=== PATIENT | male | born 1985 ===

== ENCOUNTER 2017-04-20 13:49 | Emergency (ER) | payer SELFPAY ==
[2017-04-20] MEDS ORDERED: Sodium Chloride 0.9% 1,000 ML IV ONE (14:13)
[2017-04-20 14:33] LABS: BASO # 0.1 K/uL (0.0-0.2); BASO % 1.1 % (0.0-2.0); EOS # 0.2 K/uL (0.0-0.7); EOS % 2.5 % (0.0-4.0); HEMATOCRIT 43.5 % (35.0-51.0); LYMPH % 25.5 % (20.0-40.0); MEAN CELL VOLUME 89.3 fL (80.0-94.0); MEAN CORPUSCULAR HEMOGLOBIN 30.4 pg (27.0-31.0); MEAN PLATELET VOLUME 9.1 fL (7.2-11.7); MONO # 0.8 K/uL (0.0-0.8); MONO % 9.9 % (0.0-10.0); RED CELL DISTRIBUTION WIDTH 13.9 % (11.5-14.5); WHITE BLOOD COUNT 7.7 K/uL (4.8-10.8)
[2017-04-20 14:41] LABS: CHLORIDE 99 mmol/L (98-107)
[2017-04-20 14:42] LABS: POTASSIUM 3.9 mmol/L (3.6-5.2); SODIUM 137 mmol/L (132-148)
[2017-04-20 14:44] LABS: ALB/GLOB RATIO 1.2 (1.0-2.1); ALKALINE PHOSPHATASE 71 U/L (38-126); AST/SGOT 19 U/L (17-59); BILIRUBIN,TOTAL 1.2 mg/dL (0.2-1.3); BLOOD UREA NITROGEN 17 mg/dL (9-20); CARBON DIOXIDE 26 mmol/L (22-30); GFR AFRICAN-AMERICAN > 60; GLUCOSE,RANDOM 90 mg/dL (75-110); TOTAL PROTEIN 7.6 g/dL (6.3-8.3)
[2017-04-20 14:45] LABS: ALT/SGPT 35 U/L (21-72); CALCIUM 8.9 mg/dl (8.6-10.4); MAGNESIUM 1.6 mg/dL (1.6-2.3)
[2017-04-20 15:03] LABS: FREE T4 1.07 ng/dL (0.78-2.19)
[2017-04-20 15:17] LABS: THYROID STIMULATING HORMONE 1.89 mIU/L (0.46-4.68)
--- NOTE | 2017-04-20 15:24 | C.PDOC ---
Time Seen by Provider: 04/20/17 14:06 Chief Complaint (Nursing): Palpitations History Per: Patient, Family Onset/Duration Of Symptoms: Days (1), Intermittent Episodes Current Symptoms Are (Timing): Still Present Quality Of Symptoms: Rapid Heart Rate Severity: Moderate Exacerbating Factor(s): Pos: None Additional History Per: Prior Records Past Medical History Reviewed: Historical Data, Nursing Documentation, Vital Signs Vital Signs: Last Vital Signs Temp 98.3 F 04/20/17 13:58 Pulse 62 04/20/17 13:58 Resp 18 04/20/17 13:58 BP 105/63 04/20/17 13:58 Pulse Ox 98 04/20/17 13:58 - Medical History PMH: Gastritis Surgical History: No Surg Hx - [facility] Procedures CLOSURE SKIN & SUBCUTANEOUS NEC (05/30/06) TETANUS TOXOID ADMINIST (05/30/06) Family History: States: Unknown Family Hx - Social History Hx Tobacco Use: No Hx Alcohol Use: No Hx Substance Use: No - Immunization History Hx Tetanus Toxoid Vaccination: No Hx Influenza Vaccination: No Hx Pneumococcal Vaccination: No Review Of Systems Except As Marked, All Systems Reviewed And Found Negative. Constitutional: Negative for: Fever Cardiovascular: Positive for: Palpitations Respiratory: Negative for: Hemoptysis Gastrointestinal: Negative for: Vomiting Musculoskeletal: Negative for: Neck Pain, Leg Pain Skin: Negative for: Rash Neurological: Positive for: Headache. Negative for: Weakness, Numbness, Seizures Physical Exam - Physical Exam Appears: Non-toxic, No Acute Distress Skin: Normal Color, Warm, Dry, No Rash Head: Atraumatic, Normacephalic Eye(s): bilateral: Normal Inspection, PERRL, EOMI Neck: Normal ROM, Supple Cardiovascular: Rhythm Regular Respiratory: Normal Breath Sounds, No Accessory Muscle Use Gastrointestinal/Abdominal: Soft Back: No CVA Tenderness Extremity: Normal ROM, No Pedal Edema, No Calf Tenderness Neurological/Psych: Oriented x3, Normal Motor, Normal Sensation ED Course And Treatment - Laboratory Results Result Diagrams: 04/20/17 14:29 04/20/17 14:29 Lab Interpretation: No Acute Changes ECG: Interpreted By Me, Viewed By Me ECG Rhythm: Sinus Rhythm, Nonspecific Changes ECG Interpretation: No Acute Changes Rate From EC O2 Sat by Pulse Oximetry: 98 Pulse Ox Interpretation: Normal - Radiology CXR: Interpreted by Me, Viewed By Me CXR Interpretation: Yes: No Acute Disease, Heart Size (wnl) Reassessment Condition: Improved Disposition Counseled Patient/Family Regarding: Studies Performed, Diagnosis, Need For Followup, Rx Given - Disposition Referrals: [facility] [Outside] Disposition: HOME/ ROUTINE Disposition Time: 15:25 Condition: STABLE Additional Instructions: Drink plenty of fluids. Follow up in the clinic for further evaluation and treatment. Return to the ER if you pass out, develop worsening of symptoms or if you have any other concerns. Prescriptions: Acetaminophen [Tylenol Extra Strength] 2 tab PO Q6 PRN #30 tablet PRN Reason: Pain, Moderate (4-7) Famotidine [Pepcid] 20 mg PO BID #30 tab Instructions: Palpitations (ED) Forms: [facility] (Nigerian) Print Language: RUSSIAN - Clinical Impression Clinical Impression: Palpitations
[2017-04-20 15:35] VITALS: BP 102/58; RESP 14; TEMP 97.9; O2SAT 100
[2017-04-20 15:39] VITALS: PULSE 64
--- NOTE | 2017-04-20 16:33 | RAD ---
PROCEDURE: CHEST RADIOGRAPH, 1 VIEW HISTORY: Palpitations COMPARISON: None available. FINDINGS: LUNGS: Clear. PLEURA: No pneumothorax or pleural fluid seen. CARDIOVASCULAR: Normal. OSSEOUS STRUCTURES: No significant abnormalities. VISUALIZED UPPER ABDOMEN: Normal. OTHER FINDINGS: None. IMPRESSION: No active disease.
--- NOTE | 2017-04-21 21:40 | CARD ---
APPROVED REPORT EKG Measurement Heart [id number] <Conclusion> Sinus bradycardia Minimal voltage criteria for LVH, may be normal variant Borderline ECG
== END 2017-04-20 16:10 | disposition home or self-care (01) ==
LOC: C.ER 13:49
DX: R00.2 Palpitations (principal)
CPT/HCPCS: 71010; 80053; 83735; 84439; 84443; 84484; 85025; 93005; 96374; 96375; 99285; G0480; J1885; J7040

== ENCOUNTER 2017-07-10 09:16 | Emergency (ER) | payer OTHER ==
[2017-07-10] MEDS ORDERED: Sodium Chloride 0.9% 1,000 ML IV STA (09:39)
[2017-07-10 09:47] LABS: RBC URINE 1 /hpf (0-3); URINE BILIRUBIN NEGATIVE (NEGATIVE); URINE BLOOD NEGATIVE (NEGATIVE); URINE COLOR Yellow (YELLOW); URINE GLUCOSE (UA) NORMAL (Normal); URINE KETONE NEGATIVE (NEGATIVE); URINE LEUKOCYTE ESTERASE NEG Leu/uL (Negative); URINE PROTEIN NEGATIVE (NEGATIVE); URINE UROBILINOGEN NORMAL mg/dL (0.2-1.0)
[2017-07-10] MEDS ORDERED: Sodium Chloride 0.9% 1,000 ML ONE (09:50)
[2017-07-10 09:52] LABS: BASO # 0.1 K/uL (0.0-0.2); BASO % 1.1 % (0.0-2.0); EOS # 0.1 K/uL (0.0-0.7); EOS % 1.8 % (0.0-4.0); HEMATOCRIT 44.1 % (35.0-51.0); LYMPH # 1.8 K/uL (1.0-4.3); LYMPH % 34.5 % (20.0-40.0); MEAN CELL VOLUME 89.1 fL (80.0-94.0); MEAN CORPUSCULAR HEMOGLOBIN 31.1 pg (27.0-31.0); MEAN CORPUSCULAR HGB CONC 34.8 g/dL (33.0-37.0); MEAN PLATELET VOLUME 8.9 fL (7.2-11.7); MONO # 0.5 K/uL (0.0-0.8); MONO % 10.5 % (0.0-10.0); RED CELL DISTRIBUTION WIDTH 13.6 % (11.5-14.5); WHITE BLOOD COUNT 5.2 K/uL (4.8-10.8)
--- NOTE | 2017-07-10 10:05 | C.PDOC ---
History Of Present Illness 31 year old male presents to the ED for evaluation of intermittent epigastric pain along with acid reflux for the past 2 weeks. Patient states sometimes he is nauseous but denies vomit, diarrhea, fever, chills, CO, SOB. Time Seen by Provider: 07/10/17 09:30 Chief Complaint (Nursing): Abdominal Pain History Per: Patient History/Exam Limitations: no limitations Onset/Duration Of Symptoms: Days Current Symptoms Are (Timing): Still Present Location Of Pain/Discomfort: Epigastric Radiation Of Pain To:: None Quality Of Discomfort: "Pain" Associated Symptoms: Nausea Exacerbating Factors: None Alleviating Factors: None Recent travel outside of the [place]: No Additional History Per: Patient Past Medical History Reviewed: Historical Data, Nursing Documentation, Vital Signs Vital Signs: Last Vital Signs Temp 98.3 F 07/10/17 12:23 Pulse 57 L 07/10/17 12:23 Resp 18 07/10/17 12:23 BP 106/65 07/10/17 12:23 Pulse Ox 99 07/10/17 12:23 - Medical History PMH: Gastritis Denies: Chronic Kidney Disease Surgical History: No Surg Hx - [facility] Procedures CLOSURE SKIN & SUBCUTANEOUS NEC (05/30/06) TETANUS TOXOID ADMINIST (05/30/06) Family History: States: Unknown Family Hx - Social History Hx Tobacco Use: No Hx Alcohol Use: No Hx Substance Use: No - Immunization History Hx Tetanus Toxoid Vaccination: No Hx Influenza Vaccination: No Hx Pneumococcal Vaccination: No Review Of Systems Constitutional: Negative for: Fever, Chills Cardiovascular: Negative for: Chest Pain, Palpitations Respiratory: Negative for: Cough, Shortness of Breath Gastrointestinal: Positive for: Nausea, Abdominal Pain. Negative for: Vomiting , Diarrhea Genitourinary: Negative for: Dysuria, Hematuria Skin: Negative for: Rash Neurological: Negative for: Weakness, Numbness Physical Exam - Physical Exam Appears: Non-toxic, No Acute Distress Skin: Normal Color, Warm, Dry Head: Atraumatic, Normacephalic Eye(s): bilateral: Normal Inspection Nose: No Discharge, No Deformity Neck: Normal ROM, Supple Chest: Symmetrical Cardiovascular: Rhythm Regular, No Murmur Respiratory: Normal Breath Sounds, No Rales, No Rhonchi, No Wheezing Gastrointestinal/Abdominal: Soft, Tenderness (mild epigastric and RUQ), No Distention, No Guarding, No Rebound Extremity: Normal ROM, No Pedal Edema, No Calf Tenderness, No Deformity, No Swelling Neurological/Psych: Oriented x3 ED Course And Treatment - Laboratory Results Result Diagrams: 07/10/17 09:47 07/10/17 09:47 O2 Sat by Pulse Oximetry: 100 (On RA) Pulse Ox Interpretation: Normal - CT Scan/US US abdomen Other Rad Studies (CT/US): Read By Radiologist, Radiology Report Reviewed CT/US Interpretation: HISTORY: upper abd pain. COMPARISON: None available. TECHNIQUE: Sonographic evaluation of the right upper quadrant of the abdomen. FINDINGS: LIVER: Measures 13.9 cm in length and appears unremarkable. No focal hepatic mass identified. The main portal vein appears patent with normal directional flow. No intrahepatic bile duct dilatation. GALLBLADDER: No gallstones. No gallbladder wall thickening or pericholecystic edema. Negative sonographic Dee's sign as assessed by the claims coordinator. COMMON BILE DUCT: Measures 3 mm. PANCREAS: Not well-visualized. RIGHT KIDNEY: Measures 10.6 x 3.9 x 4.4 cm. No obstructing calculus or hydronephrosis identified. AORTA: Limited visualization appears grossly unremarkable. IVC: Limited visualization appears grossly unremarkable. OTHER FINDINGS: None . IMPRESSION : Unremarkable right upper quadrant ultrasound. Progress Note: Plan: -Blood work. -IV fluids. -Protonix 40 mg IVP. -Zofran 4 mg IVP. On re-evaluation patient feels better, tolerates po, abdomen is soft and not tender. Patient is stable to be d/c home with clinic follow up. - Abdomen US Disposition - Disposition Referrals: [facility] [Outside] Disposition: HOME/ ROUTINE Disposition Time: 12:07 Condition: STABLE Additional Instructions: Follow up in Clinic within 1-2 days. Return to ED if feel worse. 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 - Scribe Statement The provider has reviewed the documentation as recorded by the Scribe Aurelio Kennedy All medical record entries made by the Scribe were at my direction and personally dictated by me. I have reviewed the chart and agree that the record accurately reflects my personal performance of the history, physical exam, medical decision making, and the department course for this patient. I have also personally directed, reviewed, and agree with the discharge instructions and disposition.
[2017-07-10 10:09] LABS: ALB/GLOB RATIO 1.3 (1.0-2.1); ALKALINE PHOSPHATASE 69 U/L (38-126); ALT/SGPT 84 U/L (21-72); AST/SGOT 70 U/L (17-59); BILIRUBIN,TOTAL 1.6 mg/dL (0.2-1.3); BLOOD UREA NITROGEN 14 mg/dL (9-20); CALCIUM 8.5 mg/dl (8.6-10.4); CARBON DIOXIDE 30 mmol/L (22-30); CHLORIDE 98 mmol/L (98-107); GFR AFRICAN-AMERICAN > 60; GLUCOSE,RANDOM 95 mg/dL (75-110); POTASSIUM 4.6 mmol/L (3.6-5.2); SODIUM 135 mmol/L (132-148); TOTAL PROTEIN 7.5 g/dL (6.3-8.3)
--- NOTE | 2017-07-10 11:07 | US ---
HISTORY: upper abd pain COMPARISON: None available. TECHNIQUE: Sonographic evaluation of the right upper quadrant of the abdomen. FINDINGS: LIVER: Measures 13.9 cm in length and appears unremarkable. No focal hepatic mass identified. The main portal vein appears patent with normal directional flow. No intrahepatic bile duct dilatation. GALLBLADDER: No gallstones. No gallbladder wall thickening or pericholecystic edema. Negative sonographic Dee's sign as assessed by the electric organ checker. COMMON BILE DUCT: Measures 3 mm. PANCREAS: Not well-visualized. RIGHT KIDNEY: Measures 10.6 x 3.9 x 4.4 cm. No obstructing calculus or hydronephrosis identified. AORTA: Limited visualization appears grossly unremarkable. IVC: Limited visualization appears grossly unremarkable. OTHER FINDINGS: None . IMPRESSION: Unremarkable right upper quadrant ultrasound.
[2017-07-10 12:25] VITALS: BP 106/65; PULSE 57; RESP 18; TEMP 98.3
[2017-07-10 16:08] VITALS: O2SAT 100
== END 2017-07-10 12:20 | disposition home or self-care (01) ==
LOC: C.ER 09:16
DX: K21.9 Gastro-esophageal reflux disease without esophagitis (principal)
CPT/HCPCS: 76705; 80053; 81001; 83690; 85025; 96361; 96374; 96375; 99285; C9113; J2405; J7040

== ENCOUNTER 2018-11-05 14:12 | Emergency (ER) | payer OTHER ==
--- NOTE | 2018-11-05 15:02 | C.PDOC ---
History Of Present Illness 32 y/o male with no significant PMHx presents to the ED with complaints of left ankle pain for the past week. States that 1 week ago while playing soccer he twisted the ankle. Patient was able to bear weight, but decided to come in today due to persistence of pain and swelling. Otherwise patient denies any numbness, tingling, or focal weakness. He tried taking some Motrin earlier today without improvement. 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) History/Exam Limitations: no limitations Onset/Duration Of Symptoms: Days Current Symptoms Are (Timing): Still Present - Ankle/Foot Description Of Injury: Twisted Past Medical History Reviewed: Historical Data, Nursing Documentation, Vital Signs Vital Signs: Last Vital Signs Temp 98.3 F 11/05/18 14:21 Pulse 73 11/05/18 14:21 Resp 20 11/05/18 14:21 BP 95/58 L 11/05/18 14:21 Pulse Ox 97 11/05/18 14:21 - Medical History PMH: Gastritis Denies: Chronic Kidney Disease - [facility] Procedures CLOSURE SKIN & SUBCUTANEOUS NEC (05/30/06) TETANUS TOXOID ADMINIST (05/30/06) Family History: States: Unknown Family Hx - Social History Hx Tobacco Use: No Hx Alcohol Use: No Hx Substance Use: No - Immunization History Hx Tetanus Toxoid Vaccination: No Hx Influenza Vaccination: No Hx Pneumococcal Vaccination: No Review Of Systems Except As Marked, All Systems Reviewed And Found Negative. Constitutional: Negative for: Fever, Chills Respiratory: Negative for: Shortness of Breath Gastrointestinal: Negative for: Nausea, Vomiting Musculoskeletal: Positive for: Foot Pain Skin: Negative for: Rash, Lesions Neurological: Negative for: Weakness, Numbness Physical Exam - Physical Exam Appears: Well, Non-toxic, No Acute Distress Skin: Warm, Dry Head: Atraumatic, Normacephalic Eye(s): bilateral: Normal Inspection Respiratory: No Accessory Muscle Use, Other (Speaking in full sentences) Extremity: Tenderness (over the left lateral malleolus and distal aspect of left tibia), Capillary Refill (< 2 sec), No Deformity, Swelling (to the left lateral malleolus), Other (Sensation intact, ROM limited secondary to pain) Pulses: Left Dorsalis Pedis: Normal, Right Dorsalis Pedis: Normal Neurological/Psych: Oriented x3, Normal Motor, Normal Sensation ED Course And Treatment O2 Sat by Pulse Oximetry: 97 (on RA) Pulse Ox Interpretation: Normal - Other Rad L Tib/Fib XR X-Ray: Read By Radiologist Interpretation: Accession No. : [id number]. Patient Name / ID : DONNEI HUITRON / [id number]. Exam Date : 11/05/2018 14:41:20 ( Approved ). Study Comment : Sex / Age : M / 32Y. Creator : Karma Calle MD. Dictator : Karma Calle MD. Russet Repairer : Electrologist : Karma Calle MD. Approver2 : Report Date : 11/05/2018 15:11:43. My Comment : . Date of service: 11/05/2018. PROCEDURE: Radiographs of the left tibia and fibula. HISTORY: r/o fx. COMPARISON: None available. TECHNIQUE: Frontal and lateral views obtained. 2 views obtained. FINDINGS: BONES: Bone alignment and mineralization are normal. There is no acute displaced fracture or bone destruction. JOINT SPACES: Unremarkable. OTHER FINDINGS: None. IMPRESSION: No acute displaced fracture or dislocation. Medical Decision Making Medical Decision Making: Impression: Ankle sprain, r/o fracture Plan: - 600 mg PO Motrin - Left tib/fib x-ray - Left ankle x-ray Imaging reviewed, no acute fractures or dislocation. Patient is medically stable for discharge home. Educated on RICE instructions. Provided with Rx for Motrin. Disposition Counseled Patient/Family Regarding: Studies Performed, Diagnosis, Need For Followup - Disposition [facility]errals: [facility] [place]] [facility] [Outside] [facility] [place] [Outside] Disposition: HOME/ ROUTINE Disposition Time: 15:15 Condition: STABLE Additional Instructions: Take motrin for pain, elevate your ankle, apply ice three times per day. Prescriptions: Ibuprofen [Motrin] 600 mg PO Q6 #20 tab Instructions: Ankle Sprain (DC) Forms: [facility] (Slovak), Work Excuse - POA Present On Arrival: None - Clinical Impression Clinical Impression: Ankle sprain - Scribe Statement The provider has reviewed the documentation as recorded by the Michaelibjoao Durbin Provider Attestation: All medical record entries made by the Michaelibe were at my direction and personally dictated by me. I have reviewed the chart and agree that the record accurately reflects my personal performance of the history, physical exam, medical decision making, and the department course for this patient. I have also personally directed, reviewed, and agree with the discharge instructions and disposition.
--- NOTE | 2018-11-05 15:15 | RAD ---
Date of service: 11/05/2018 PROCEDURE: Radiographs of the left tibia and fibula. HISTORY: r/o fx COMPARISON: None available. TECHNIQUE: Frontal and lateral views obtained. 2 views obtained. FINDINGS: BONES: Bone alignment and mineralization are normal. There is no acute displaced fracture or bone destruction. JOINT SPACES: Unremarkable. OTHER FINDINGS: None. IMPRESSION: No acute displaced fracture or dislocation.
[2018-11-05 15:22] VITALS: BP 97/58; PULSE 52; RESP 14; TEMP 98.4
[2018-11-05 15:25] VITALS: O2SAT 97
--- NOTE | 2018-11-06 08:34 | RAD ---
Date of service: 11/05/2018 PROCEDURE: Left Ankle Radiographs. HISTORY: r/o fx COMPARISON: None available. TECHNIQUE: 3 views obtained. FINDINGS: BONES: Normal. No fracture. JOINTS: Normal. No osteoarthritis. Ankle mortise maintained. Talar dome intact SOFT TISSUES: Lateral soft tissue swelling noted. This may indicate ligamentous injury. OTHER FINDINGS: None. IMPRESSION: No evidence of fracture. Lateral soft tissue swelling noted.
== END 2018-11-05 15:26 | disposition home or self-care (01) ==
LOC: C.ER 14:12
DX: S93.402A Sprain of unspecified ligament of left ankle, initial encounter (principal); X50.1XXA Overexertion from prolonged static or awkward postures, initial encounter; Y93.66 Activity, soccer